=== PATIENT | male | born 1965 | race Caucasian/White ===

== ENCOUNTER 2019-08-31 18:02 | Emergency (ER) | payer BC, MEDICAID ==
[2019-08-31] MEDS ORDERED: NORMAL SALINE 1000 ML 1,000 ML IV ONE (19:42)
--- NOTE | 2019-08-31 19:45 | ER Document Report ---
ED Medical Screen (RME) - General Chief Complaint: High Blood Sugar Stated Complaint: BLOOD SUGAR ISSUE Time Seen by Provider: 08/31/19 19:32 Notes: Patient's primary care physician Dr. Durand called to report abnormal labs from this morning. He reports that the patient had routine labs drawn and had a blood glucose of 607, slightly elevated liver enzymes, creatinine of 1.4, elevated triglycerides at 3400 as well as diarrhea, chest pain and flank pain. Did call the patient and told him to come to the emergency department. Patient reports having upper back pain for about 1 month. Patient is also had midsternal sharp chest pain "for a while." Patient does have a history of type 2 diabetes on Humalog, Lantus and Jardiance, CAD, AR with 1 stent placement. Patient reports has been taking his medications as prescribed. Patient reports last night developing some diarrhea. Patient also reports developing some periumbilical abdominal pain and upper abdominal pain. Patient reports he does not drink alcohol, uses marijuana recreationally, does not smoke cigarettes. TRAVEL OUTSIDE OF THE [place] IN LAST 30 DAYS: No - Related Data Allergies/Adverse Reactions: No Known Allergies Allergy (Verified 08/31/19 19:31) Past Medical History Endocrine Medical History: Reports: Hx Diabetes Mellitus Type 2 - Immunizations Hx Diphtheria, Pertussis, Tetanus Vaccination: Yes Physical Exam - Vital signs Vitals: Temp Pulse Resp BP Pulse Ox 98.2 F 120 H 16 132/90 H 94 08/31/19 18:36 08/31/19 18:36 08/31/19 18:36 08/31/19 18:36 08/31/19 18:36 Course - Re-evaluation Re-evalutation: 08/31/19 19:44 Abdomen round, generalized upper abdominal pain. Patient's blood glucose in the 200s in triage. Will obtain basic labs, give IV fluids. Patient was noted to be tachycardic with a heart rate of 120. Patient is afebrile. I have greeted and performed a rapid initial assessment of this patient. A comprehensive ED assessment and evaluation of the patient, analysis of test results and completion of the medical decision making process will be conducted by additional ED providers. 08/31/19 19:45 - Vital Signs Vital signs: Temp Pulse Resp BP Pulse Ox 98.2 F 120 H 16 132/90 H 94 08/31/19 18:36 02/13/20 18:36 08/31/19 18:36 08/31/19 18:36 08/31/19 18:36
[2019-08-31 20:34] LABS: APPEARANCE,URINE CLEAR; BILIRUBIN,URINE NEGATIVE (NEGATIVE); COLOR,URINE STRAW; GLUCOSE, URINE >=500 mg/dL (NEGATIVE); KETONES,URINE NEGATIVE (NEGATIVE); LEUKOCYTE ESTERASE,URINE NEGATIVE (NEGATIVE); NITRITE,URINE NEGATIVE (NEGATIVE); PROTEIN,URINE NEGATIVE (NEGATIVE); URINE SPECIFIC GRAVITY 1.032; UROBILINOGEN,URINE NEGATIVE mg/dL (<2.0)
--- NOTE | 2019-08-31 20:34 | RADIOLOGY REPORT (SQ) ---
EXAM DESCRIPTION: CLINICAL HISTORY: 54 years Male CHEST PAIN COMPARISON: None. FINDINGS: The cardiomediastinal silhouette appears unremarkable. No consolidating infiltrates or pleural effusions. No pneumothorax. IMPRESSION: No acute abnormality is identified.
[2019-08-31 20:39] LABS: ABSOLUTE BASOPHILS # (AUTO) 0.1 10^3/uL (0.0-0.2); ABSOLUTE EOSINOPHILS # (AUTO) 0.1 10^3/uL (0.0-0.6); ABSOLUTE LYMPHOCYTES (AUTO) 2.8 10^3/uL (0.5-4.7); ABSOLUTE MONOCYTES (AUTO) 0.7 10^3/uL (0.1-1.4); ABSOLUTE NEUT (AUTO) 4.7 10^3/uL (1.7-8.2); BASOPHILS % (AUTO) 1.2 % (0-2); EOSINOPHILS % (AUTO) 0.7 % (0-6); HEMATOCRIT 45.7 % (37.9-51.0); LYMPHOCYTES % (AUTO) 33.7 % (13-45); MEAN CORPUSCULAR VOLUME 92 fl (80-97); MONOCYTES % (AUTO) 8.1 % (3-13); PLATELET COUNT 246 10^3/uL (150-450); RED BLOOD COUNT 4.98 10^6/uL (4.35-5.55); RED CELL DISTRIBUTION WIDTH 12.9 % (11.5-14.0); SEGMENTED NEUTROPHILS % (AUTO) 56.3 % (42-78); TOTAL CELLS COUNTED % (AUTO) 100 %; WHITE BLOOD COUNT 8.3 10^3/uL (4.0-10.5)
[2019-08-31 21:06] LABS: HEMOGLOBIN 15.3 g/dL (13.5-17.0); MEAN CORPUSCULAR HEMOGLOBIN 30.8 pg (27.0-33.4); MEAN CORPUSCULAR HGB CONC 33.6 g/dL (32.0-36.0)
[2019-08-31] MEDS ORDERED: KETOROLAC TROMETHAMINE INJ/PF 30 MG/1 ML SDV IV ONE (23:12)
[2019-08-31] MEDS ORDERED: RINGERS SOLUTION,LACTATED 1,000 ML IV ONE (23:12)
--- NOTE | 2019-08-31 23:20 | EKG REPORT ---
SEVERITY:- ABNORMAL ECG - SINUS TACHYCARDIA MULTIPLE VENTRICULAR PREMATURE COMPLEXES PROBABLE LEFT ATRIAL ABNORMALITY INFERIOR INFARCT, AGE INDETERMINATE : Confirmed by: Gabino Fletcher MD 31-Aug-2019 23:19:14
--- NOTE | 2019-08-31 23:28 | ER Document Report ---
ED General - General TRAVEL OUTSIDE OF THE [place] IN LAST 30 DAYS: No - Related Data Home Medications: DIABETIC,. HTN. CARDIAC MEDS. <CAMILLE AVERY - Last Filed: 09/01/19 02:27> <KHLOE ODONNELL IV - Last Filed: 09/01/19 03:30> - General Chief Complaint: High Blood Pressure Stated Complaint: BLOOD SUGAR ISSUE Time Seen by Provider: 08/31/19 19:32 Primary Care Provider: KATE JORDAN MD [HONORARY] - Follow up as needed Notes: 54-year-old male presents the emergency department after being sent in by his primary care physician for a blood sugar of greater than 600 on routine labs today. Patient states that he has been having pain in between his shoulder blades for the past several weeks it is a sharp stabbing pain that seems to get worse when he eats particularly when he drinks milk. Patient does note that he has chest pain but he states that he has been constant chest pain since he had a quadruple bypass 2-1/2 years ago and is absolutely unchanged. Patient also complains of diarrhea starting yesterday and going all night and some associated periumbilical abdominal pain. Denies any fevers, denies any vomiting, denies any nausea. (CAMILLE AVERY) - Related Data Allergies/Adverse Reactions: No Known Allergies Allergy (Verified 08/31/19 19:31) Past Medical History - General Information source: Patient - Social History Smoking Status: Former Smoker Frequency of alcohol use: None Drug Abuse: Marijuana Family History: Reviewed & Not Pertinent Patient has suicidal ideation: No Patient has homicidal ideation: No Endocrine Medical History: Reports: Hx Diabetes Mellitus Type 2 - Immunizations Hx Diphtheria, Pertussis, Tetanus Vaccination: Yes <CAMILLE AVERY - Last Filed: 09/01/19 02:27> Review of Systems - Review of Systems Constitutional: No symptoms reported Cardiovascular: See HPI, Chest pain Respiratory: No symptoms reported Gastrointestinal: See HPI Musculoskeletal: See HPI -: Yes All other systems reviewed and negative <CAMILLE AVERY - Last Filed: 09/01/19 02:27> Physical Exam - Vital signs Interpretation: Tachycardic <CAMILLE AVERY - Last Filed: 09/01/19 02:27> - Vital signs Vitals: Temp Pulse Resp BP Pulse Ox 98.2 F 120 H 16 132/90 H 94 08/31/19 18:36 08/31/19 18:36 08/31/19 18:36 08/31/19 18:36 08/31/19 18:36 - Notes Notes: GENERAL: Alert, interacts well. No acute distress. HEAD: Normocephalic, atraumatic EYES: Pupils equal, round and reactive to light, extraocular movements intact. ENT: Oral mucosa moist, tongue midline. NECK: Full range of motion, supple, trachea midline. LUNGS: Clear to auscultation bilaterally, no wheezes, rales or rhonchi, no respiratory distress. HEART: Mildly tachycardic rate and rhythm, no murmurs, gallops, rubs. ABDOMEN: Distended, epigastric, periumbilical and bilateral lower quadrant tenderness to palpation, small amount of guarding, no rigidity, no rebounding, bowel sounds present in all 4 quadrants. Somewhat tympanitic. EXTREMITIES: Moves all 4 extremities spontaneously, no edema, radial and dorsalis pedis pulses 2/4 bilaterally. No cyanosis. NEUROLOGICAL: Alert and oriented x3, normal speech, no facial droop. PSYCH: Normal mood, normal affect. SKIN: Warm, Dry, normal turgor. (CAMILLE AVERY) Course - Laboratory Result Diagrams: 08/31/19 20:10 08/31/19 23:31 <CAMILLE AVERY - Last Filed: 09/01/19 02:27> - Laboratory Result Diagrams: 08/31/19 20:10 08/31/19 23:31 <KHLOE ODONNELL IV - Last Filed: 09/01/19 03:30> - Re-evaluation Re-evalutation: 09/01/19 02:19 CBC unremarkable, CMP shows slight low sodium and slightly low CO2, blood sugar is actually normal at 181, direct bilirubin elevated, total bilirubin is normal, AST normal, ALT mildly elevated, troponin is detectable at 0.043. This will be repeated in 3 hours, urinalysis shows glucose without ketones, no signs of infection. Lipase is normal. Chest X-Ray 08/31/19 19:42 IMPRESSION: No acute abnormality is identified. Abdomen X-Ray 08/31/19 23:12 IMPRESSION: 1. No acute findings. Patient's abdomen is somewhat tender and distended so I did order an acute abdominal series to look for small bowel obstruction, this revealed no acute process, when I looked at myself it did show a large amount of stool. Patient is sent for CT scan of the abdomen pelvis with IV and oral contrast to look for any other causes of the distention of the pain. Patient has been signed out to Dr. Odonnell he will follow-up on the results of the repeat troponin as well as the results of the CAT scan. I suspect that the patient's elevated blood sugar from blood work either earlier today or yesterday where his primary care physician reports that his blood sugar was greater than 600 is a lab error because the patient states he checked his blood sugar yesterday and it was in the 200s and again today it is in the upper 180s to 200s here. It is very unlikely without intervention that the patient's blood sugar would have been 600 and normalized so quickly. 09/01/19 02:27 (CAMILLE AVERY) 09/01/19 03:26 CT of the abdomen is negative for SBO or other acute abnormality. Second troponin is 0.042, less than the patient's first troponin. (KHLOE ODONNELL IV) - Vital Signs Vital signs: Temp Pulse Resp BP Pulse Ox 98.2 F 120 H 16 145/104 H 95 08/31/19 18:36 08/31/19 18:36 09/01/19 03:01 09/01/19 03:01 09/01/19 03:01 - Laboratory Laboratory results interpreted by me: 08/31/19 08/31/19 08/31/19 19:39 20:20 23:31 Sodium 135.6 L Carbon Dioxide 20 L Glucose 181 H POC Glucose 255 H Direct Bilirubin 1.0 H ALT 79 H Urine Glucose (UA) >=500 H Discharge <CAMILLE AVERY - Last Filed: 09/01/19 02:27> <KHLOE ODONNELL IV - Last Filed: 09/01/19 03:30> - Discharge Clinical Impression: Chronic chest pain Abdominal pain Qualifiers: Abdominal location: unspecified location Qualified Code(s): R10.9 - Unspecified abdominal pain Condition: Good Disposition: HOME, SELF-CARE Instructions: Abdominal Pain ([facility]) Additional Instructions: Return to the Emergency Department without delay if any worse. HOME CARE INSTRUCTIONS & INFORMATION: Thank you for choosing us for your medical needs. We hope you're satisfied with the care you received. After you leave, you must properly care for your problem and, at the same time, observe its progress. Any condition can change. Some illnesses can change rapidly over hours or days. If your condition worsens, return to the Emergency Department or see your physician promptly. ABOUT YOUR X-RAYS AND EKG'S: If you had an EKG or X-rays taken, they have been read by the Emergency Physician. The X-rays and EKG's will also be read by a Radiologist or Entry Level Java Developer within 24 hours. If discrepancies are noted, you will be notified by telephone. Please be certain the ED has a correct telephone number & address where you can be reached. Also, realize that some fractures or abnormalities do not show up on initial X-rays. If your symptoms continue, see your physician. ABOUT YOUR LABORATORY TEST: If you had laboratory tests, the results have been reviewed by the Emergency Physician. Some test results (for example cultures) may not be available for several days. You will be contacted if any test result shows you need additional treatment. Please be certain the ED has a correct telephone number and address where you can be reached. ABOUT YOUR MEDICATIONS: You will receive instructions on how to take your medicine on the prescription label you receive. Additional information may be provided by the Pharmacy. If you have questions afterwards, call the ED for clarification or further instructions. Some prescribed medications may cause drowsiness. Do not perform tasks such as driving a car or operating machinery without consulting your Pharmacist. If you feel you need a refill of pain medication, your condition will need re-evaluation. Please do not call for a refill of any medication. ABOUT YOUR SIGNATURE: Signature of this document acknowledges to followin. Understanding that you received emergency treatment and that you may be released before al medical problems are known or treated. Please be certain the ED has a correct phone number & address where you can be reached. 2. Acknowledgement that you will arrange for follow-up care as recommended. 3. Authorization for the Emergency Physician to provide information to your f ollow-up Physician in order to maximize your care. AT ANY TIME, IF YOUR SYMPTOMS CHANGE SIGNIFICANTLY OR WORSEN OR YOU DEVELOP NEW SYMPTOMS, RETURN TO THE EMERGENCY DEPARTMENT IMMEDIATELY FOR RE-EVALUATION. OUR GOAL IS TO PROVIDE EXCELLENT MEDICAL CARE! WE HOPE THAT WE HAVE MET YOUR EXPECTATIONS DURING YOUR EMERGENCY DEPARTMENT VISIT AND THAT YOU FEEL YOU HAVE RECEIVED EXCELLENT CARE! Referrals: KATE JORDAN MD [HONORARY] - Follow up as needed
[2019-08-31 23:57] LABS: ALBUMIN 4.1 g/dL (3.5-5.0); ALKALINE PHOSPHATASE 92 U/L (38-126); ANION GAP 13 (5-19); ASPARTATE AMINO TRANSFERASE 58 U/L (17-59); BILIRUBIN,TOTAL 1.3 mg/dL (0.2-1.3); BLOOD UREA NITROGEN 16 mg/dL (7-20); CALCIUM 8.4 mg/dL (8.4-10.2); CARBON DIOXIDE 20 mmol/L (22-30); CHLORIDE 103 mmol/L (98-107); GLUCOSE 181 mg/dL (75-110); POTASSIUM 4.7 mmol/L (3.6-5.0); TOTAL PROTEIN 7.9 g/dL (6.3-8.2)
--- NOTE | 2019-09-01 00:36 | RADIOLOGY REPORT (SQ) ---
EXAM DESCRIPTION: [facility]: XR ABDOMEN 2 VIEWS SUPINE ERECT Views: 2 CLINICAL HISTORY: 54 years Male; abd pain, distention, r/o SBO; COMPARISON: None. FINDINGS: Supine and erect AP abdomen: Bowel gas pattern is normal, with no air-fluid levels or small bowel distention. No free intraperitoneal air. No suspicious calcifications. Sternal wires are partially visualized. IMPRESSION: 1. No acute findings.
--- NOTE | 2019-09-01 02:58 | RADIOLOGY REPORT (SQ) ---
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 Evaluate for bowel obstruction. COMPARISON: None. TECHNIQUE: CT scan of the abdomen and pelvis was performed with IV contrast. This exam was performed according to our departmental dose-optimization program, which includes automated exposure control, adjustment of the mA and/or kV according to patient size and/or use of iterative reconstruction technique. FINDINGS: The lung bases are clear. No pleural or pericardial effusions. Hepatic steatosis. The gallbladder is contracted, limiting evaluation. Spleen, pancreas, adrenal glands, kidneys, and pelvic organs are normal. No hydronephrosis or urinary stones are seen. No small bowel obstruction. The appendix is normal. No evidence of acute diverticulitis. No adenopathy, free fluid, or free air is identified. The aorta is normal caliber and contains atherosclerotic calcifications. No acute bony findings are visualized. There is no pathologic body wall hernia. IMPRESSION: No bowel obstruction.
[2019-09-01 05:07] VITALS: BP 147/89
== END 2019-09-01 05:17 | disposition home or self-care (01) ==
LOC: ER 18:02
DX: R10.33 Periumbilical pain (principal); R07.9 Chest pain, unspecified; G89.29 Other chronic pain; R74.0 Nonspecific elevation of levels of transaminase and lactic acid dehydrogenase [LDH]; R79.89 Other specified abnormal findings of blood chemistry; R14.0 Abdominal distension (gaseous); R10.816 Epigastric abdominal tenderness; R10.815 Periumbilic abdominal tenderness; R10.813 Right lower quadrant abdominal tenderness; R10.814 Left lower quadrant abdominal tenderness; R00.0 Tachycardia, unspecified; M54.9 Dorsalgia, unspecified; R19.7 Diarrhea, unspecified; E11.9 Type 2 diabetes mellitus without complications; Z95.1 Presence of aortocoronary bypass graft; Z87.891 Personal history of nicotine dependence
CPT/HCPCS: 99284; 96361; 96374; 36415; 82962; 83690; 85025; 80053; 81001; 84484; 74019; 71046; 74177; 93005; 93010; J1885; J7030; J7120